=== PATIENT | female | born 1980 | race Caucasian/White ===

== ENCOUNTER 2025-02-05 11:01 | Emergency (ER) | payer OTHER, SELFPAY ==
[2025-02-05 11:12] VITALS: BP 148/90; PULSE 68; TEMP 35.2; O2SAT 98; BMI 47.3
[2025-02-05 12:07] LABS: SARS-CoV-2 Ag NEGATIVE (NEGATIVE)
--- NOTE | 2025-02-05 12:46 | ED_ITS ---
HPI HPI - General Adult General Chief complaint: Upper Respiratory Infection Stated complaint: RUNNY NOSE,SORE THROAT, COUGH, DIZZINESS,SHORT OF Time Seen by Provider: 02/05/25 12:45 Source: patient Mode of arrival: walk-in Limitations: no limitations History of Present Illness HPI narrative: Patient is a 44-year-old female who presents to the emergency department with complaints of 5 days of cough, runny nose, sore throat, and night sweats. She denies having a fever at home or taking her temperature. She does have a history of seasonal allergies and stage II kidney disease. She was seen in the [place] [facility] and was diagnosed with a UTI and prescribed Keflex. She states that they did a UA as she was having some right flank pain when she was coughing. She states that she is out of her inhalers and cannot take prednisone as she has a bad reaction to it that she states is lightheaded and heart palpitations. Related Data Home Medications ?Medication ?Instructions ?Recorded ?Confirmed alprazolam 1 mg tablet mg 02/05/25 bupropion HCl 300 mg 24 hr tablet, mg PO 02/05/25 extended release cephalexin 500 mg capsule mg 02/05/25 escitalopram oxalate 20 mg tablet mg 02/05/25 Previous Rx's ?Medication ?Instructions ?Recorded albuterol sulfate 90 mcg/actuation 2 inh inhalation Q6 H PRN shortness 02/05/25 aerosol inhaler of breath or wheezing #6.7 g scott krlqebyoewezfjg-fxgxcqcyuxgjanw-LC 10 ml PO Q6H PRN co ld symptoms 02/05/25 2 mg-30 mg-10 mg/5 mL oral syrup #118 mL (Bromfed DM) Allergies Allergy/AdvReac Type Severity Reaction Status Date / Time nickel Allergy Hives Verified 02/05/25 11:23 prednisone AdvReac Unknown Verified 02/05/25 11:23 contrast dye Allergy Hives Uncoded 02/05/25 11:23 strawberries Allergy shortness Uncoded 02/05/25 11:23 of breath Review of Systems ROS Status of ROS 10 or more systems reviewed and unremark able except as noted in history and below PFSH PFSH Social History Little interest or pleasure in doing things: not at all Feeling down, depressed, or hopeless: not at all Exam Narrative Exam Narrative: General: No distress, age-appropriate Skin: Warm, dry, no pallor. No rash. Head: Normocephalic, atraumatic. Neck: Supple, non-tender. Eye: Pupils are equal, round and EOMI. No scleral icterus. Ears, Nose, Mouth, and Throat: No nasal mucosal hypertrophy. Oral mucosa is moist, no posterior oropharynx erythema, uvula is mid-line Cardiovascular: Regular Rate and Rhythm without murmur, gallop or rub. Respiratory: No accessory muscle use or respiratory distress. Lungs are clear to auscultation, no wheezing, rales or rhonchi Chest Wall: Left chest wall tenderness anteriorly, posterior left chest wall tenderness Back: No midline thoracic or lumbar vertebral tenderness. Musculoskeletal: Full ROM of all extremities, no calf or popliteal tenderness GI: Abdomen is soft, non-distended, non tender to palpation. No masses appreciated. No rebound, guarding, or rigidity noted. Neurological: A&O x4. No cranial nerve dysfunction observed. No truncal ataxia. Moves all extremities. Sensation intact. Psychiatric: Cooperative and interactive. Normal mood and affect. Constitutional Vital Signs, click to edit/add: Last Vital Signs Temp 95.4 F L 02/05/25 11:12 Pulse 68 02/05/25 11:12 Resp 18 02/05/25 11:12 BP 148/90 H 02/05/25 11:12 Pulse Ox 98 02/05/25 11:12 O2 Del Method Room Air 02/05/25 11:12 Course Vital Signs Vital signs: Vital Signs Temperature 95.4 F L 02/05/25 11:12 Pulse Rate 68 02/05/25 11:12 Respiratory Rate 18 02/05/25 11:12 Blood Pressure 148/90 H 02/05/25 11:12 Pulse Oximetry 98 02/05/25 11:12 Oxygen Delivery Method Room Air 02/05/25 11:12 Temperature 95.4 F L 02/05/25 11:12 Pulse Rate 68 02/05/25 11:12 Respiratory Rate 18 02/05/25 11:12 Blood Pressure 148/90 H 02/05/25 11:12 Pulse Oximetry 98 02/05/25 11:12 Oxygen Delivery Method Room Air 02/05/25 11:12 Medical Decision Making MDM Narrative Medical decision making narrative: This is a 44-year-old female that presented to the emergency department with complaints of persistent cough, runny nose, and sore throat for 5 days. She had presented to a different ER and was diagnosed with a UTI because she was having some right flank pain with coughing. She is on Keflex. She continues to have persistent cough and left-sided anterior/posterior chest pain. She has a past medical history of seasonal allergies and stage II kidney disease. She states she has been taking Tylenol but cannot take ibuprofen secondary to her kidney disease. On arrival patient is in no distress, BP is hypertensive at 148/90, pulse 68, vitals hemodynamically stable. Temperature is afebrile at 95.4. She has 98% O2 saturations on room air. Auscultation bilaterally of lungs reveals no wheezing, rales, or rhonchi. She does cough frequently throughout exam. COVID-19, influenza A/B, strep a swabs taken on arrival. Negative swabs for COVID-19, influenza A/B, and strep A. Chest x-ray ordered. Chest x-ray negative for acute findings. No opacities, no effusion. I discussed test and imaging results with patient. She has contraindications to steroids and ibuprofen. We discussed continuing with Tylenol for chest wall pain likely from costochondritis. I prescribed her Bromfed at discharge to help with cough. She can return to work as she is likely out of the contagious window. No antibiotics indicated for her condition that is likely costochondritis and bronchitis. Return precautions were discussed with patient and she was discharged in stable condition. Differential Diagnosis Differential Diagnosis: COVID-19, influenza A/B, viral syndrome, bronchitis Lab Data Lab results reviewed: Yes I reviewed the patient's lab results Labs: Lab Results 02/05/25 Range/Units 11:20 Influenza Type A Ag Negative Influenza Type B Ag Negative SARS-CoV-2 Ag (CV2AG) Negative (NEGATIVE) Streptococcus Screen Negative Imaging Data Chest x-ray: Attestation: I have reviewed the pertinent imaging results. Radiologist's impression: ITS Impressions Chest X-Ray 02/05/25 13:45 IMPRESSION: NO ACUTE FINDINGS Impression dictated by: Chantelle Tan M.D. 02/05/2025 2:01 PM Dictation Location: [place] [address] Electronically authenticated by: [id number] Y Date: 02/05/2025 14:01 Discharge Plan Discharge Chief Complaint: Upper Respiratory Infection Clinical Impression: Upper respiratory infection Patient Disposition: Home, Self-Care Time of Disposition Decision: 13:48 Mode of Transportation: Private Vehicle Prescriptions / Home Meds: New hnbbsxpwixslemt-ofyrinfwg-LB [Bromfed DM] 2-30-10 mg/5 mL syrup 10 ml PO Q6H PRN (Reason: cold symptoms) Qty: 118 0RF albuterol sulfate 90 mcg/actuation HFA aerosol inhaler 2 inh inhalation Q6H PRN (Reason: shortness of breath or wheezing) Qty: 6.7 0RF No Action alprazolam 1 mg tablet cephalexin 500 mg capsule escitalopram oxalate 20 mg tablet bupropion HCl 300 mg tablet extended release 24 hr PO Print Language: Martiniquais Instructions: Upper Respiratory Infection (ED) Referrals: Alexandria Ahuja NP [Primary Care Provider] - 1 week Discharge Date/Time: 02/05/25 13:57
--- NOTE | 2025-02-05 13:45 | XR_ITS ---
[facility] [place] [address] Patient Name: DANNY SCOTT MRN: [id number] date: 1980 Sex: F Assigned Patient Location: ER Current Patient Location: Accession/Order Number: [id number] Exam Date: 02/05/2025 13:40 Report Date: 02/05/2025 14:01 At the request of: JADE WEINSTEIN Procedure: XR chest 1V PORTABLE AP ERECT CHEST 1345 hours CLINICAL HISTORY: Left upper chest pain, Cough COMPARISON: None There is slight elevation of the right hemidiaphragm. The heart is within normal limits. There is no vascular congestion. The lungs, as visualized, are clear. There is no effusion or pneumothorax. The osseous structures are intact. XR/XR chest 1V IMPRESSION: NO ACUTE FINDINGS Impression dictated by: Chantelle Tan M.D. 02/05/2025 2:01 PM Dictation Location: [place] [address] Electronically authenticated by: [id number] Y Date: 02/05/2025 14:01
== END 2025-02-05 13:57 | disposition home or self-care (01) ==
PROVIDERS: Emergency Provider Emergency Medicine; PCP Nurse Practitioner Family
DX: J06.9 Acute upper respiratory infection, unspecified (principal); N18.2 Chronic kidney disease, stage 2 (mild)
CPT/HCPCS: 71045; 87070; 87804; 87811; 87880; 99284